=== PATIENT | female | born 1935 | race Caucasian/White ===

== ENCOUNTER → 2018-05-25 | Outpatient (CLI) | payer MEDICARE, OTHER ==
--- NOTE | 2018-05-25 14:46 | RAD ---
MR of the right knee Indication: Medial right knee pain for 2 months, no known injury. Comparison: None are available. Technique: The standard multiplanar sequences are obtained. FINDINGS: Artifact: No significant image degradation. Medial meniscus: Degenerative tear Lateral meniscus: Intrameniscal signal with subtle surface in compatible with a mild tear. Anterior cruciate ligament: Intact. Posterior cruciate ligament: Intact Medial collateral ligament: Mild fluid tracking deep and superficial to the ligament without evidence of intrinsic tear. Lateral structures: * Iliotibial band: Intact. * Lateral collateral ligament: Intact. * Biceps femoris tendon: Intact * Popliteus tendon attachment: Intact. There is an intermediate grade strain or partial tear of the muscle. Extensive mechanism: * Patellar tendon: Intact * Quadriceps tendon: Intact * Retinacular structures: Intact Fluid: Small joint effusion. Small Malhotra's cyst. Mild unorganized fluid above and below this cyst suggesting dissection or rupture. Intra-articular bodies: None visualized Joint compartments * patellofemoral joint: Severe chondromalacia at the medial patella. * medial compartment: At least moderate chondral thinning. Acute subchondral marrow edema at the medial tibial plateau. Small subchondral hypointense band just below the articular surface, compatible with a small incomplete fracture. * lateral compartment:Intact Bones: No additional fracture. Soft tissue: No additional findings Impression: 1. Degenerative tear of the medial meniscus. 2. Mild degenerative tear of the lateral meniscus. 3. Small incomplete subchondral fracture of the medial tibial plateau without displacement, most likely a stress fracture. 4. Primary osteoarthritis. 5. Small Malhotra's cyst, with mild rupture or dissection. 5. Intermediate grade strain or partial tear of popliteus muscle, popliteus tendon attachment is intact. Electronically signed by: Tony Hinton MD (05/25/2018 2:42 PM) [id number]
== END | disposition home or self-care (01) ==
LOC: MRI 10:56
PROVIDERS: ATTEND Orthopaedic Surgery Sports Medicine
DX: S83.241A Other tear of medial meniscus, current injury, right knee, initial encounter (principal); S83.281A Other tear of lateral meniscus, current injury, right knee, initial encounter; M17.11 Unilateral primary osteoarthritis, right knee; M71.21 Synovial cyst of popliteal space [Baker], right knee; M25.461 Effusion, right knee; M22.41 Chondromalacia patellae, right knee; X58.XXXA Exposure to other specified factors, initial encounter; Y93.89 Activity, other specified; Y92.89 Other specified places as the place of occurrence of the external cause; Y99.8 Other external cause status
CPT/HCPCS: 73721